=== PATIENT | male | born 2000 | race Caucasian/White ===

== ENCOUNTER 2024-03-18 09:06 | Emergency (ER) | payer SELFPAY ==
[2024-03-18] MEDS ORDERED: Fluorescein Opthalmic Strip ONE (10:51)
[2024-03-18] MEDS ORDERED: Proparacaine 0.5% Opth 15 ML BOT ONE (10:51)
[2024-03-18] MEDS ORDERED: Boostrix 0.5 ML (Tdap) VIAL (>/=7 yrs of age) ONE (11:13)
== END 2024-03-18 11:27 | disposition home or self-care (01) ==
LOC: ERS 09:06
DX: H57.89 Other specified disorders of eye and adnexa (principal); H05.222 Edema of left orbit
CPT/HCPCS: 90471; 90715

== ENCOUNTER 2025-07-05 20:53 | Observation (INO) | payer SELFPAY ==
[~2025-07-05 20:53] MED LIST: Iopamidol-370 76% 500 ML MDV (1 ML CHARGE) ONE
[2025-07-05 22:31] LABS: #Basophils 0.07 10x3/uL (0.0-0.2); #Eosinophils 0.13 10x3/uL (0.0-0.7); #Monocytes 0.76 10x3/uL (0.11-0.59); #Neutrophils 4.76 10x3/uL (1.40-6.50); %Basophils 0.7 % (0.0-1.0); %Eosinophils 1.4 % (0.0-10.0); %Lymphocytes 39.2 % (21.0-51.0); %Monocytes 8.0 % (0.0-10.0); %Neutrophils 50.4 % (42.0-75.0); Hematocrit 39.1 % (42.0-52.0); Hemoglobin 13.2 g/dL (14.0-18.0); Mean Corpuscular Hemoglobin 29.1 pg (27.0-31.0); Mean Corpuscular Volume 86.3 fL (78.0-98.0); Platelet Count 267 10x3/uL (130-400); Red Blood Cell (RBC) Count 4.53 mill/uL (4.70-6.10); White Blood Cell (WBC) Count 9.45 10x3/uL (4.8-10.8)
[2025-07-05 22:57] LABS: ALT (SGPT) 46 U/L (Less than 45); AST (SGOT) 34 U/L (11-34); Albumin 4.3 g/dL (3.1-4.5); Alkaline Phosphatase 48 U/L (40-110); Anion Gap 12 mmol/L (10-20); BUN (Urea Nitrogen) 12 mg/dL (8.9-20.6); Bilirubin, Total 0.2 mg/dL (0.3-1.2); Calc. Creatinine Clearance 0 mL/min (70-130); Calcium 10.0 mg/dL (7.8-10.44); Carbon Dioxide 26 mmol/L (22-29); Chloride 106 mmol/L (98-107); Globulin 2.7 g/dL (2.4-3.5); Glucose 98 mg/dL (70-105); Lipase 31 U/L (8-78); Potassium 3.9 mmol/L (3.5-5.1); Sodium 140 mmol/L (136-145)
[2025-07-05] MEDS ORDERED: Glucagon 1 MG/ML KIT IM PRN (22:59)
[2025-07-05] MEDS ORDERED: hydrALAZINE 20 MG/ML VIAL SLOW IVP PRN (22:59)
[2025-07-05] MEDS ORDERED: Dextrose 50% Abboject 50 ML SYRINGE SLOW IVP PRN (22:59)
[2025-07-05 23:03] LABS: Bacteria/HPF None Seen HPF (None Seen); CAUTI Indications for Culture Dysuria,urgency,freq; Glucose, Urine (Dipstick) Normal (Negative); Leukocyte Negative Leu/uL (Negative); Protein, Urine (Dipstick) Negative (Neg-Trace); RBC/HPF 0-3 HPF (0-3); Specific Gravity, Urine 1.025 (1.002-1.036); WBC/HPF 0-3 HPF (0-3)
[2025-07-05 23:05] LABS: Urine Culture Reflex No No
[2025-07-05] MEDS ORDERED: cefTRIAXone (ROCEPHIN) 2 GM VIAL ONE (23:27)
[2025-07-05] MEDS ORDERED: metroNIDAZOLE 500 MG (100 mL) BAG ONE (23:27)
[2025-07-06] MEDS: Acetaminophen 325 MG TAB PO PRN (00:55)
[2025-07-06 01:16] VITALS: BMI 31.4
[2025-07-06] MEDS: Ondansetron PF 4 MG/2 ML Vial IVP PRN (02:28)
[2025-07-06 06:17] LABS: #Basophils 0.10 10x3/uL (0.0-0.2); #Eosinophils 0.17 10x3/uL (0.0-0.7); #Monocytes 0.80 10x3/uL (0.11-0.59); #Neutrophils 3.61 10x3/uL (1.40-6.50); %Basophils 1.1 % (0.0-1.0); %Eosinophils 1.8 % (0.0-10.0); %Lymphocytes 49.4 % (21.0-51.0); %Monocytes 8.6 % (0.0-10.0); %Neutrophils 38.9 % (42.0-75.0); Hematocrit 37.1 % (42.0-52.0); Hemoglobin 12.2 g/dL (14.0-18.0); Mean Corpuscular Hemoglobin 28.8 pg (27.0-31.0); Mean Corpuscular Volume 87.5 fL (78.0-98.0); Platelet Count 258 10x3/uL (130-400); Red Blood Cell (RBC) Count 4.24 mill/uL (4.70-6.10); White Blood Cell (WBC) Count 9.28 10x3/uL (4.8-10.8)
[2025-07-06 06:48] LABS: Anion Gap 12 mmol/L (10-20); BUN (Urea Nitrogen) 10 mg/dL (8.9-20.6); Calc. Creatinine Clearance 194 mL/min (70-130); Calcium 8.8 mg/dL (7.8-10.44); Carbon Dioxide 26 mmol/L (22-29); Chloride 104 mmol/L (98-107); Glucose 95 mg/dL (70-105); Potassium 3.7 mmol/L (3.5-5.1); Sodium 138 mmol/L (136-145)
[2025-07-06] MEDS ORDERED: PROPOFOL 20 ML ONE ×2 (06:58→08:54)
[2025-07-06] MEDS ORDERED: Rocuronium Bromide 10 MG/ML (10ML VIAL) ONE (06:59)
[2025-07-06] MEDS ORDERED: Bupivacaine 0.25% HCL 30 ML VIAL ONE (07:03)
[2025-07-06] MEDS ORDERED: NEOSTIGMINE 3 MG/3 ML SYRINGE ONE (09:18)
[2025-07-06] MEDS ORDERED: Glycopyrrolate 0.2 MG/ML 5 ML SYRINGE ONE (09:18)
[2025-07-06] MEDS ORDERED: fentaNYL PF 100 MCG/2 ML SYRINGE ONE ×2 (09:31→10:49)
[2025-07-06] MEDS ORDERED: Ondansetron PF 4 MG/2 ML Vial ONE (10:00)
[2025-07-06] MEDS ORDERED: HYDROmorphone 0.5 MG/0.5 ML SYR SLOW IVP PRN (11:00)
[2025-07-06] MEDS: Famotidine 20 MG TAB PO SCH (14:02)
[2025-07-06 14:50] VITALS: BP 118/77; TEMP 97.6
== END 2025-07-06 14:39 | disposition home or self-care (01) ==
LOC: ERS 20:53 → SURG B 23:02 → INTOOBSV 23:02
PROVIDERS: ADMIT Surgery; ATTEND Surgery
PROC: 0DTJ4ZZ Resection of Appendix, Percutaneous Endoscopic Approach (ICD-10-PCS; principal; 2025-07-06)
DX: K35.80 Unspecified acute appendicitis (principal); F12.10 Cannabis abuse, uncomplicated; Z90.89 Acquired absence of other organs
CPT/HCPCS: 36415; 74177; 80048; 80053; 81001; 83690; 85025; 88304; 96365; 96374; 96375; 96376; A4649; G0378; J0169; J0665; J0696; J1100; J2250; J2270; J2405; J2543; J2704; J3010; J7120; Q9967